=== PATIENT | female | born 1980 | race Caucasian/White ===

== ENCOUNTER 2016-08-06 20:21 | Emergency (ER) | payer OTHER ==
[~2016-08-06] VITALS: Ht 162.6 cm; Wt 91.3 kg
[2016-08-06 20:23] VITALS: BP 128/73
== END 2016-08-06 22:31 | disposition home or self-care (01) ==
LOC: ED 22:11
DX: J20.5 Acute bronchitis due to respiratory syncytial virus (principal); Z87.891 Personal history of nicotine dependence
CPT/HCPCS: 71020; 99284

== ENCOUNTER 2018-03-10 17:50 | Emergency (ER) | payer OTHER ==
[~2018-03-10] VITALS: Ht 162.6 cm; Wt 89.6 kg
[2018-03-10 18:05] VITALS: BP 109/75
[2018-03-10 18:45] LABS: BASOPHILS # (AUTO) 0.04 x10^3/uL (0-0.1); BASOPHILS % (AUTO) 1 % (0-1); EOSINOPHILS # (AUTO) 0.06 x10^3/uL (0-0.4); EOSINOPHILS % (AUTO) 1 % (1-7); LYMPHOCYTES # (AUTO) 3.29 x10^3/uL (1-3.4); LYMPHOCYTES % (AUTO) 43 % (22-44); MD NO; MEAN CORPUSCULAR HEMOGLOBIN 29.7 pg (27.0-34.8); MEAN CORPUSCULAR HGB CONC 34.1 g/dL (32.4-35.8); MEAN CORPUSCULAR VOLUME 86.9 fL (80-100); MEAN PLATELET VOLUME 8.4 fL (7.4-10.4); MONOCYTES # (AUTO) 0.62 x10^3/uL (0.2-0.8); MONOCYTES % (AUTO) 8 % (2-9); NEUTROPHILS # (AUTO) 3.62 x10^3/uL (1.8-6.8); NEUTROPHILS % (AUTO) 48 % (42-75); PLATELET COUNT 270 x10^3/uL (130-400); RED BLOOD COUNT 4.72 x10^6/uL (3.82-5.3); RED CELL DISTRIBUTION WIDTH 13.2 % (9.6-15.2)
[2018-03-10 18:54] LABS: ALANINE AMINOTRANSFERASE 30 U/L (12-78); ALBUMIN 3.3 g/dL (3.4-5.0); ANION GAP 6 mmol/L (5-15); CALCIUM 8.3 mg/dL (8.5-10.1); CHLORIDE 109 mmol/L (98-107); CREATININE 0.73 mg/dL (0.55-1.02)
[2018-03-10 18:59] LABS: ALKALINE PHOSPHATASE 53 U/L (45-117); BILIRUBIN,TOTAL 0.2 mg/dL (0.2-1.0); TOTAL PROTEIN 6.8 g/dL (6.4-8.2)
[2018-03-10 19:02] LABS: SALICYLATE LEVEL < 1.7 mg/dL (2.8-20.0)
[2018-03-10 19:03] LABS: ACETAMINOPHEN < 2 mcg/mL (10-30)
[2018-03-10] MEDS ORDERED: VITAMIN C PO (19:05)
[2018-03-10] MEDS ORDERED: ALLEGRA PO (19:05)
[2018-03-10] MEDS ORDERED: ARMOUR THYROID PO (19:05)
[2018-03-10] MEDS ORDERED: LACT1CAP40 PO (19:05)
[2018-03-10] MEDS ORDERED: ALBU8.5H8 INH (19:05)
[2018-03-10] MEDS ORDERED: SPIR50TA4 PO (19:05)
[2018-03-10 19:19] LABS: AMPHETAMINE SCREEN, URINE Negative (Negative); BARBITURATE SCREEN, URINE Negative (Negative); BENZODIAZEPINE SCREEN, URINE Negative (Negative); CANNABINOID SCREEN, URINE Negative (Negative); COCAINE SCREEN, URINE Negative (Negative); METHADONE SCREEN, URINE Negative (Negative); OPIATE SCREEN, URINE Negative (Negative)
[2018-03-10] MEDS ORDERED: LORazepam 1MG TABLET ONE (20:17)
[2018-03-10] MEDS ORDERED: LORazepam 1MG TABLET PO ONE (20:30)
== END 2018-03-10 20:22 | disposition home or self-care (01) ==
LOC: ED 18:38
DX: F32.9 Major depressive disorder, single episode, unspecified (principal); F17.200 Nicotine dependence, unspecified, uncomplicated
CPT/HCPCS: 36415; 80053; 80307; 80329; 84703; 85025; 99284; G0480